=== PATIENT | female | born 2000 | race Caucasian/White ===

== ENCOUNTER 2018-11-09 21:02 | Emergency (ER) | payer BC ==
[2018-11-09] MEDS ORDERED: diphenhydrAMINE 50 MG/ML SDV IM ONE (21:40)
[2018-11-09] MEDS ORDERED: Dexamethasone 4 MG/ML SDV IM ONE (21:41)
--- NOTE | 2018-11-09 22:24 | EDM.PDOC ---
ED HPI GENERAL MEDICAL PROBLEM - General Chief Complaint: General Stated Complaint: ALLERGIC REACTION Time Seen by Provider: 11/09/18 21:40 Source of Information: Reports: Patient History Limitations: Reports: No Limitations - History of Present Illness INITIAL COMMENTS - FREE TEXT/NARRATIVE: Patient present with facial flushing, throat swelling, and cough. This started about an hour ago. She is not having any difficulty breathing. No chest pain. does have a facial rash that is generalized but only there. No general body rash. Onset: Today, Sudden Duration: Intermittent Location: Reports: Face Associated Symptoms: Reports: Cough, Rash - Related Data Allergies Allergy/AdvReac Type Severity Reaction Status Date / Time aspirin Allergy Hives Verified 11/09/18 22:09 hydrocodone Allergy Itching Verified 11/09/18 22:09 ED ROS GENERAL - Review of Systems Review Of Systems: See Below Constitutional: Reports: No Symptoms HEENT: Reports: Throat Swelling Respiratory: Reports: Cough Cardiovascular: Reports: No Symptoms Endocrine: Reports: No Symptoms GI/Abdominal: Reports: No Symptoms : Reports: No Symptoms Musculoskeletal: Reports: No Symptoms Skin: Reports: Rash, Urticaria Neurological: Reports: No Symptoms Psychiatric: Reports: No Symptoms Hematologic/Lymphatic: Reports: No Symptoms Immunologic: Reports: No Symptoms ED EXAM, GENERAL - Physical Exam Exam: See Below Exam Limited By: No Limitations General Appearance: Alert, WD/WN, No Apparent Distress Eye Exam: Bilateral Eye: EOMI, Normal Inspection, PERRL Ears: Normal TMs Nose: Normal Inspection, Normal Mucosa, No Blood Throat/Mouth: Normal Inspection, Normal Lips, Normal Teeth, Normal Gums, Normal Oropharynx, Normal Voice, No Airway Compromise Head: Atraumatic, Normocephalic Neck: Normal Inspection, Supple, Non-Tender, Full Range of Motion Respiratory/Chest: No Respiratory Distress, Lungs Clear, Normal Breath Sounds, No Accessory Muscle Use, Chest Non-Tender Cardiovascular: Normal Peripheral Pulses, Regular Rate, Rhythm, No Edema, No Gallop, No JVD, No Murmur, No Rub GI/Abdominal: Normal Bowel Sounds, Soft, Non-Tender, No Organomegaly, No Distention, No Abnormal Bruit, No Mass Neurological: Alert, Oriented, CN II-XII Intact, Normal Cognition, Normal Gait, Normal Reflexes, No Motor/Sensory Deficits Skin Exam: Erythema, Rash Course - Orders/Labs/Meds Meds: Medications Discontinued Medications Generic Name Dose Route Start Last Admin Trade Name Ted PRN Reason Stop Dose Admin Dexamethasone 8 mg 11/09/18 21:41 Dexamethasone IM 11/09/18 21:42 ONETIME ONE Diphenhydramine HCl 25 mg 11/09/18 21:40 Benadryl IM 11/09/18 21:41 ONETIME ONE Departure - Departure Time of Disposition: 22:30 Disposition: Home, Self-Care 01 Condition: Good Clinical Impression: Cough, Allergic reaction - Discharge Information *PRESCRIPTION DRUG MONITORING PROGRAM REVIEWED*: Not Applicable *COPY OF PRESCRIPTION DRUG MONITORING REPORT IN PATIENT KAREEN: Not Applicable Instructions: Allergies, Adult, [id number], Cough, Adult, [id number] Forms: ED Department Discharge Additional Instructions: Plan 1. Follow up with primary provider later this week if this does not resolve 2. Make sure to document anything that is causing your allergic outbreak 3. Treat cough with over the counter medications. Take up to 50 mg benadryl 3- 4 times per day 4. Call if you have any additional questions or concerns - Problem List & Annotations (1) Allergic reaction SNOMED Code(s): 102054857 Code(s): T78.40XA - ALLERGY, UNSPECIFIED, INITIAL ENCOUNTER Status: Acute Priority: Low Qualifiers: Encounter type: initial encounter Qualified Code(s): T78.40XA - Allergy, unspecified, initial encounter (2) Cough SNOMED Code(s): 75312388 Code(s): R05 - COUGH Status: Acute Priority: Low - Problem List Review Problem List Initiated/Reviewed/Updated: Yes - Assessment/Plan Assessment:: cough allergic reaction Plan: Plan 1. Follow up with primary provider later this week if this does not resolve 2. Make sure to document anything that is causing your allergic outbreak 3. Treat cough with over the counter medications. Take up to 50 mg benadryl 3- 4 times per day 4. Call if you have any additional questions or concerns
== END 2018-11-09 22:32 | disposition home or self-care (01) ==
LOC: VM.ED 21:02
DX: T78.40XA Allergy, unspecified, initial encounter (principal); Z88.6 Allergy status to analgesic agent
CPT/HCPCS: 96372; 99283; J1100; J1200

== ENCOUNTER 2019-07-23 20:21 | Emergency (ER) | payer BC ==
[2019-07-23] MEDS ORDERED: cefTRIAXone 1 GM, Lidocaine 1% 2.1 ML IM ONE ×2 (20:29)
[2019-07-23] MEDS ORDERED: predniSONE 20 MG Tab PO ONE (20:30)
[2019-07-23] MEDS ORDERED: Albuterol/Ipratropium 3.0-0.5 MG/3 ML Neb Soln NEB ONE (20:31)
--- NOTE | 2019-07-23 20:40 | EDM.PDOC ---
ED HPI GENERAL MEDICAL PROBLEM - General Chief Complaint: General Stated Complaint: DIFFICULTY BREATHING Time Seen by Provider: 07/23/19 20:30 Source of Information: Reports: Patient - History of Present Illness INITIAL COMMENTS - FREE TEXT/NARRATIVE: Patient comes into the emergency department with complaint of chest congestion, shortness of breath with activity, and fever. Patient states that she has had an upper respiratory illness for approximately 14 days. She did go the walk-in clinic and [facility] over the and received a prednisone taper and states that it did not help. She states that she's had the body aches, fever , severe cough, and mucus production. Patient states that she continues to decline. She has noticed over the course last 2-3 days that she has had increase of shortness of breath when she is ambulating. She states it is hard to catch her breath after she has walked any sort of distance. While at rest she denies any shortness of breath. She just states that she has had some auditory wheezing. She states it's worse when lying down. She denies any other illnesses and is up to date with vaccines. Onset: Gradual Quality: Reports: Other Improves with: Reports: None Worsens with: Reports: None Associated Symptoms: Reports: Cough, cough w sputum, Diaphoresis, Fever/Chills - Related Data Allergies Allergy/AdvReac Type Severity Reaction Status Date / Time aspirin Allergy Swelling Verified 11/10/18 04:22 hydrocodone Allergy Rash Verified 11/10/18 04:22 oxycodone Allergy Rash Verified 11/10/18 04:22 Home Meds: Home Meds Azithromycin 250 mg PO DAILY #5 tablet 07/23/19 [Rx] Benzonatate [Tessalon Perle] 100 mg PO TID PRN #15 capsule 07/23/19 [Rx] predniSONE 20 mg PO WITHBREAKFAST 5 Days #5 tab 07/23/19 [Rx] Past Medical History Endocrine/Metabolic History: Reports: Hypothyroidism ED ROS GENERAL - Review of Systems Review Of Systems: Comprehensive ROS is negative, except as noted in HPI. Constitutional: Reports: Fever, Malaise HEENT: Reports: No Symptoms Respiratory: Reports: Wheezing, Cough, Sputum Cardiovascular: Reports: No Symptoms Endocrine: Reports: No Symptoms GI/Abdominal: Reports: No Symptoms : Reports: No Symptoms Musculoskeletal: Reports: No Symptoms Skin: Reports: No Symptoms Neurological: Reports: No Symptoms Psychiatric: Reports: No Symptoms Hematologic/Lymphatic: Reports: No Symptoms ED EXAM, GENERAL - Physical Exam Exam: See Below Exam Limited By: No Limitations General Appearance: Alert, WD/WN, No Apparent Distress Eye Exam: Bilateral Eye: EOMI, PERRL Head: Atraumatic, Normocephalic Neck: Normal Inspection, Supple, Non-Tender, Full Range of Motion Respiratory/Chest: Decreased Breath Sounds, Wheezing Cardiovascular: Normal Peripheral Pulses, Regular Rate, Rhythm, No Edema Extremities: Normal Inspection, Normal Range of Motion, Non-Tender, No Pedal Edema, Normal Capillary Refill Neurological: Alert, Oriented, CN II-XII Intact, Normal Gait Psychiatric: Normal Affect, Normal Mood Skin Exam: Warm, Dry, Intact, Normal Color Course - Orders/Labs/Meds Orders: Active Orders 24 hr Category Date Time Status RT Aerosol Therapy [RC] ASDIRECTED Care 07/23/19 20:31 Ordered Meds: Medications Discontinued Medications Generic Name Dose Route Start Last Admin Trade Name Dorianq PRN Reason Stop Dose Admin Albuterol/Ipratropium 3 ml 07/23/19 20:31 Duoneb 3.0-0.5 Mg/3 Ml NEB 07/23/19 20:32 ONETIME ONE Ceftriaxone Sodium 1 gm/ 0 gm 07/23/19 20:29 Lidocaine HCl 2.1 ml IM 07/23/19 20:30 ONETIME ONE Prednisone 20 mg 07/23/19 20:30 Prednisone PO 07/23/19 20:31 ONETIME ONE Departure - Departure Time of Disposition: 21:00 Disposition: Home, Self-Care 01 Condition: Good Clinical Impression: Acute bronchitis Qualifiers: Bronchitis organism: unspecified organism Qualified Code(s): J20.9 - Acute bronchitis, unspecified - Discharge Information *PRESCRIPTION DRUG MONITORING PROGRAM REVIEWED*: Not Applicable *COPY OF PRESCRIPTION DRUG MONITORING REPORT IN PATIENT KAREEN: Not Applicable Instructions: Acute Bronchitis, Adult, [id number], Ceftriaxone injection, Probiotics Forms: ED Department Discharge Additional Instructions: 1. rest 2. increase water intake 3. Take antibiotic as prescribed 4. Take a probiotic while taking her antibiotics to promote healthy GI tract 5. Can take Tylenol or ibuprofen as needed for fever or pain 6. Follow-up with primary care provider if not feeling better turn if symptoms worsen 7. Can use humidified air to help with decongestion 8. Call with any questions or concerns - My Orders Last 24 Hours: My Active Orders 07/23/19 20:31 RT Aerosol Therapy [RC] ASDIRECTED - Assessment/Plan Last 24 Hours: My Active Orders 07/23/19 20:31 RT Aerosol Therapy [RC] ASDIRECTED Assessment:: 1. Acute bronchitis Plan: 1. Rocephin IM given in the ER 2. Duoneb treatment given in the ER 3. Prednisone PO given in the ER. 4. Script sent home with the patient to be filled tomorrow. 5. Education regarding antibiotic, probiotic, activity, diet, [id number] medications, and follow-up was provided patient 6. All questions and concerns were addressed with the patient prior to discharge
== END 2019-07-23 21:25 | disposition home or self-care (01) ==
LOC: VM.ED 20:21
DX: J20.9 Acute bronchitis, unspecified (principal); E03.9 Hypothyroidism, unspecified; Z79.899 Other long term (current) drug therapy; Z88.6 Allergy status to analgesic agent
CPT/HCPCS: 96372; 99284; A9270; J0696; J2001; J7620-GY